=== PATIENT | male | born 1990 | race Caucasian/White ===

== ENCOUNTER 2018-11-15 18:05 | Emergency (ER) | payer MEDICAID ==
[2018-11-15] MEDS ORDERED: NS 1,000 ML IV ONE (19:04)
--- NOTE | 2018-11-15 19:37 | EDPHY ---
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 After the cramping in his legs he developed a feeling of dyspnea, carpal spasms, mild tunnel vision. He reports that all the symptoms resolved shortly after the IV was placed here. He reports he had a similar episode with dehydration in the past and speculates that he may have dehydration now citing drinking for same patties day more alcohol than usual and also drinking some red bowl. He does not think he has had as much water other normal fluids as he should while doing heavy manual labor today after the weekend. He also reports that he had mild lightheadedness during the episode that has since improved. He is accompanied by his girlfriend who drove him here by private vehicle for evaluation. ROS: Constitutional: He felt well prior to this episode. No fevers HEENT: No complaints. Pulmonary: Currently no dyspnea. No recent coughing. Cardiovascular: No chest pain. No leg swelling. His leg cramps of resolved since they episode. GI: No nausea vomiting or abdominal pain : No complaints Psychiatric: He denies depression or anxiety. 7 point review of symptoms is performed and otherwise negative with exception of pertinent positives and negatives listed in HPI and ROS Smoking Status: Former smoker Physical Exam: General Appearance: Alert, no distress. Eyes: Pupils equal and round no pallor or injection. ENT, Mouth: Mucous membranes dry. Respiratory: There are no retractions, lungs are clear to auscultation. Cardiovascular: Regular rate and rhythm. Gastrointestinal: Abdomen is soft and nontender, no masses, bowel sounds normal. Neurological: GCS 15. No focal deficits. No focal weakness or sensory deficits. Skin: Warm and dry, no rashes. Musculoskeletal: Neck is supple nontender. Extremities are symmetrical, full range of motion. Psychiatric: Patient is oriented X 3, there is no agitation. DIFFERENTIAL DIAGNOSIS: After history and physical exam differential diagnosis was considered for dehydration, muscle cramps, hyperventilation, panic attack Constitutional: Initial Vital Signs Temperature (C) 36.5 C 11/15/18 18:17 Heart Rate 66 11/15/18 18:17 Respiratory Rate 16 11/15/18 18:17 Blood Pressure 155/88 H 11/15/18 18:17 O2 Sat (%) 100 11/15/18 18:17 O2 Delivery Mode Room Air Allergies/Adverse Reactions: No Known Allergies Allergy (Unverified 11/15/18 18:22) Home Medications: Medication Instructions Recorded NK [No Known Home Meds] 11/15/18 MDM/Departure - MDM Diagnostics: Comp metabolic panel is normal. Medications Given: Discontinued Medications Sodium Chloride (Ns) 1,000 mls @ 0 mls/hr IV EDNOW ONE; Wide Open PRN Reason: Protocol Stop: 11/15/18 19:05 Last Admin: 11/15/18 19:08 Dose: 1,000 mls ED Course/Re-evaluation: 1 normal saline bolus IV. the patient remained stable without any symptoms Discussion: This patient likely had a muscle cramp from dehydration in exertion that then triggered a Finer flat response. I counseled regarding this. We ruled out electrolyte abnormalities with normal CMP. He denies any significant depression or anxiety. Patient understands need to return emergency department should he develop any significant worsening despite treatment plan - Depart Disposition: Home, Routine, Self-Care Clinical Impression: Dehydration after exertion, Car[place]edal spasm Condition: Good Instructions: Dehydration (ED), Muscle Spasm (ED) Additional Instructions: Diagnosis: 1. Dehydration 2. Muscle spasms Your electrolytes are all normal today Plan: Drink plenty fluids Avoid red Claridge similar stimulant drinks Return if he develops any significant worsening or recurrence of symptoms despite treatment plan. Follow-up with primary care physician for any ongoing symptoms. Referrals: NONE *PRIMARY CARE P,. [Primary Care Provider] - As per Instructions Madhuri Bell MD [Medical Doctor] - As per Instructions
[2018-11-15 21:08] VITALS: BP 124/89
== END 2018-11-15 19:51 | disposition home or self-care (01) ==
LOC: CED 18:05
DX: E86.0 Dehydration (principal); M62.838 Other muscle spasm
CPT/HCPCS: 80053-ER; 96360-ER; 99284-ER